=== PATIENT | female | born 1995 ===

== ENCOUNTER 2022-08-05 20:07 | Inpatient (IN) | payer BC, OTHER ==
[~2022-08-05] VITALS: Ht 177.8 cm; Wt 85.9 kg
[2022-08-05] MEDS ORDERED: PRENATAL TABLE1 EAC2 PO (20:45)
[2022-08-05 20:49] LABS: BASOPHILS ABSOLUTE AUTO 0.03 K/mm3 (0.00-0.23); BASOPHILS PERCENT AUTO 0 % (0-2); EOSINOPHILS ABSOLUTE AUTO 0.05 K/mm3 (0.00-0.68); EOSINOPHILS PERCENT AUTO 1 % (0-6); Hematocrit 38.5 % (33.0-51.0); Hemoglobin 13.6 g/dL (11.5-16.0); IMMATURE GRAN ABSOLUTE AUTO 0.05 K/mm3 (0.00-0.10); IMMATURE GRAN PERCENT AUTO 1 % (0-1); LYMPHOCYTES ABSOLUTE AUTO 1.76 K/mm3 (0.84-5.20); LYMPHOCYTES PERCENT AUTO 20 % (21-46); MONOCYTES ABSOLUTE AUTO 0.71 K/mm3 (0.16-1.47); MONOCYTES PERCENT AUTO 8 % (4-13); Mean Corpuscular HGB 31.9 pg (26.0-34.0); Mean Corpuscular HGB Conc 35.3 g/dL (31.5-36.5); Mean Corpuscular Volume 90 fL (80-100); Mean Platelet Volume 10.9 fL (9.1-12.4); NEUTROPHILS ABSOLUTE AUTO 6.32 K/mm3 (1.96-9.15); NEUTROPHILS PERCENT AUTO 71 % (41-73); Platelet Count 230 K/mm3 (150-400); RDW Coefficient Variation 12.6 % (11.7-14.2); RDW Standard Deviation 41.3 fL (35.1-46.3); Red Blood Cell Count 4.27 M/mm3 (3.80-5.20); White Blood Cell Count 8.92 K/mm3 (4.00-11.30)
[2022-08-08 05:49] LABS: BASOPHILS ABSOLUTE AUTO 0.04 K/mm3 (0.00-0.23); BASOPHILS PERCENT AUTO 0 % (0-2); EOSINOPHILS ABSOLUTE AUTO 0.05 K/mm3 (0.00-0.68); EOSINOPHILS PERCENT AUTO 0 % (0-6); Hematocrit 34.8 % (33.0-51.0); IMMATURE GRAN ABSOLUTE AUTO 0.05 K/mm3 (0.00-0.10); IMMATURE GRAN PERCENT AUTO 0 % (0-1); LYMPHOCYTES ABSOLUTE AUTO 1.92 K/mm3 (0.84-5.20); LYMPHOCYTES PERCENT AUTO 15 % (21-46); MONOCYTES ABSOLUTE AUTO 1.09 K/mm3 (0.16-1.47); MONOCYTES PERCENT AUTO 8 % (4-13); Mean Corpuscular HGB 31.7 pg (26.0-34.0); Mean Corpuscular HGB Conc 34.5 g/dL (31.5-36.5); Mean Corpuscular Volume 92 fL (80-100); Mean Platelet Volume 10.8 fL (9.1-12.4); NEUTROPHILS ABSOLUTE AUTO 10.11 K/mm3 (1.96-9.15); NEUTROPHILS PERCENT AUTO 76 % (41-73); Platelet Count 196 K/mm3 (150-400); RDW Standard Deviation 43.4 fL (35.1-46.3); Red Blood Cell Count 3.79 M/mm3 (3.80-5.20); White Blood Cell Count 13.26 K/mm3 (4.00-11.30)
== END 2022-08-08 19:27 | disposition home or self-care (01) | DRG 807 ==
LOC: OBS 20:07 → BC 20:20
PROVIDERS: ADMIT Obstetrics & Gynecology
PROC: 10E0XZZ Delivery of Products of Conception, External Approach (ICD-10-PCS; principal; 2022-08-07)
PROC: 0HQ9XZZ Repair Perineum Skin, External Approach (ICD-10-PCS; 2022-08-07)
PROC: 3E0R3BZ Introduction of Anesthetic Agent into Spinal Canal, Percutaneous Approach (ICD-10-PCS; 2022-08-07)
PROC: 00HU33Z Insertion of Infusion Device into Spinal Canal, Percutaneous Approach (ICD-10-PCS; 2022-08-07)
DX: O48.0 Post-term pregnancy (principal); Z37.0 Single live birth; O77.0 Labor and delivery complicated by meconium in amniotic fluid; O70.0 First degree perineal laceration during delivery; Z3A.41 41 weeks gestation of pregnancy
CPT/HCPCS: 36415; 51702; 85025; 86850; 86900; 86901; A9270; J0290; J1885; J2210; J2590; J7120

== ENCOUNTER 2023-09-24 10:01 | Inpatient (IN) | payer BC, OTHER ==
[~2023-09-24] VITALS: Ht 177.8 cm; Wt 82.7 kg
[2023-09-24] VITALS (38 sets, daily range): BP systolic 89–138; BP diastolic 50–102
[~2023-09-24 10:01] MED LIST: PRENATAL TABLE1 EAC2 PO
[2023-09-24] MEDS ORDERED: Ampicillin Sod 2,000 MG in NS 100 ML IV STA (10:23)
[2023-09-24] MEDS ORDERED: Lidocaine HCl 1% 30 ML SDV XX SCH (10:25)
[2023-09-24] MEDS ORDERED: Castor Oil 59.146 ML BTL TOP SCH (10:25)
[2023-09-24] MEDS ORDERED: Bupivacaine 0.5% HCl 5 MG/ML 30MLVIAL XX SCH (10:25)
[2023-09-24] MEDS ORDERED: ePHEDrine Sulfate 50 MG/ML 1ML Injection XX PRN (10:25)
[2023-09-24] MEDS ORDERED: Lactated Ringer's 1,000 ML IV PRN (10:25)
[2023-09-24] MEDS ORDERED: Misoprostol 200 MCG Tab PR SCH (10:25)
[2023-09-24] MEDS ORDERED: FentaNYL 2mcg/ml-Bup 0.1% Epd 250 ML EPI PRN (10:25)
[2023-09-24] MEDS ORDERED: Bupivacaine HCl 2.5 MG/ML 10ML P/F Injection XX SCH (10:25)
[2023-09-24] MEDS ORDERED: Lactated Ringer's 1,000 ML IV SCH ×3 (10:25→19:25)
[2023-09-24] MEDS ORDERED: Oxytocin 10 Unit / ML Vial IM SCH (10:25)
[2023-09-24] MEDS ORDERED: Methylergonovine Maleate 0.2MG / ML 1ML Amp IM SCH (10:25)
[2023-09-24] MEDS ORDERED: LR Oxytocin 20 Units 1,000 ML IV SCH ×2 (10:25→19:25)
[2023-09-24] MEDS ORDERED: Lactated Ringer's 1,000 ML IV ONE (10:30)
[2023-09-24] MEDS ORDERED: LR Oxytocin 20 Units 1,000 ML IV ONE (10:30)
[2023-09-24 10:43] LABS: BASOPHILS ABSOLUTE AUTO 0.06 K/mm3 (0.00-0.23); BASOPHILS PERCENT AUTO 0 % (0-2); EOSINOPHILS ABSOLUTE AUTO 0.03 K/mm3 (0.00-0.68); EOSINOPHILS PERCENT AUTO 0 % (0-6); Hematocrit 41.2 % (33.0-51.0); Hemoglobin 14.8 g/dL (11.5-16.0); IMMATURE GRAN ABSOLUTE AUTO 0.07 K/mm3 (0.00-0.10); IMMATURE GRAN PERCENT AUTO 0 % (0-1); LYMPHOCYTES ABSOLUTE AUTO 1.34 K/mm3 (0.84-5.20); LYMPHOCYTES PERCENT AUTO 8 % (21-46); MONOCYTES PERCENT AUTO 6 % (4-13); Mean Corpuscular HGB 32.2 pg (26.0-34.0); Mean Corpuscular HGB Conc 35.9 g/dL (31.5-36.5); Mean Corpuscular Volume 90 fL (80-100); Mean Platelet Volume 10.3 fL (9.1-12.4); NEUTROPHILS ABSOLUTE AUTO 13.96 K/mm3 (1.96-9.15); NEUTROPHILS PERCENT AUTO 85 % (41-73); Platelet Count 247 K/mm3 (150-400); RDW Coefficient Variation 12.9 % (11.7-14.2); RDW Standard Deviation 42.5 fL (35.1-46.3); Red Blood Cell Count 4.59 M/mm3 (3.80-5.20); White Blood Cell Count 16.46 K/mm3 (4.00-11.30)
[2023-09-24] MEDS ORDERED: FentaNYL Citrate 50 MCG/ML 2 ML Injection ONE (11:09)
[2023-09-24] MEDS ORDERED: FentaNYL Citrate 50 MCG/ML 2 ML Injection IV PRN (13:35)
[2023-09-24] MEDS ORDERED: Ampicillin Sod 1,000 MG in NS 100 ML IV SCH (14:00)
[2023-09-24] MEDS ORDERED: Benzocaine Topical Anesthetic Spray 60GM TOP PRN (19:20)
[2023-09-24] MEDS ORDERED: Acetaminophen 325 MG TABLET PO PRN (19:20)
[2023-09-24] MEDS ORDERED: Methylergonovine Maleate 0.2MG / ML 1ML Amp IM PRN (19:20)
[2023-09-24] MEDS ORDERED: Ibuprofen 400 MG Tab PO PRN (19:25)
[2023-09-24] MEDS ORDERED: Witch Hazel/Glycerin PADS TOP PRN (19:25)
[2023-09-24] MEDS ORDERED: Misoprostol 200 MCG Tab PR PRN (19:25)
[2023-09-24] MEDS ORDERED: Ketorolac Tromethamine 30mg Vial IV SCH (20:00)
[2023-09-25] VITALS (7 sets, daily range): BP systolic 108–127; BP diastolic 68–77
[2023-09-25] MEDS ORDERED: Ketorolac Tromethamine 30mg Vial IV PRN (02:55)
[2023-09-25 05:39] LABS: BASOPHILS ABSOLUTE AUTO 0.05 K/mm3 (0.00-0.23); BASOPHILS PERCENT AUTO 0 % (0-2); EOSINOPHILS ABSOLUTE AUTO 0.12 K/mm3 (0.00-0.68); EOSINOPHILS PERCENT AUTO 1 % (0-6); Hematocrit 36.9 % (33.0-51.0); IMMATURE GRAN ABSOLUTE AUTO 0.07 K/mm3 (0.00-0.10); IMMATURE GRAN PERCENT AUTO 1 % (0-1); LYMPHOCYTES ABSOLUTE AUTO 1.81 K/mm3 (0.84-5.20); LYMPHOCYTES PERCENT AUTO 14 % (21-46); MONOCYTES ABSOLUTE AUTO 0.95 K/mm3 (0.16-1.47); MONOCYTES PERCENT AUTO 7 % (4-13); Mean Corpuscular HGB 32.2 pg (26.0-34.0); Mean Corpuscular HGB Conc 35.2 g/dL (31.5-36.5); Mean Corpuscular Volume 91 fL (80-100); Mean Platelet Volume 10.3 fL (9.1-12.4); NEUTROPHILS ABSOLUTE AUTO 10.41 K/mm3 (1.96-9.15); NEUTROPHILS PERCENT AUTO 78 % (41-73); Platelet Count 207 K/mm3 (150-400); RDW Standard Deviation 43.2 fL (35.1-46.3); Red Blood Cell Count 4.04 M/mm3 (3.80-5.20); White Blood Cell Count 13.41 K/mm3 (4.00-11.30)
[2023-09-25] MEDS ORDERED: Prenatal Vit/FE Fumarate/FA 1 Tab PO SCH (09:00)
[2023-09-25] MEDS ORDERED: IBUP800 PO (09:12)
[2023-09-25] MEDS ORDERED: Docusil100 MG PO (09:13)
--- NOTE | 2023-09-25 10:30 | NUR ---
Assumed care from Arabella Cardoso RN
--- NOTE | 2023-09-25 15:00 | NUR ---
Pt, who is experienced mother, reviewed printed d/c instructions. Denies any questions.
== END 2023-09-25 22:50 | disposition home or self-care (01) | DRG 806 ==
LOC: OBS 10:01 → BC 10:02 → OBS 10:19 → BC 10:20
PROVIDERS: ADMIT Obstetrics & Gynecology
PROC: 10E0XZZ Delivery of Products of Conception, External Approach (ICD-10-PCS; principal; 2023-09-24)
DX: O48.0 Post-term pregnancy (principal); O47.1 False labor at or after 37 completed weeks of gestation; Z37.0 Single live birth; Z3A.40 40 weeks gestation of pregnancy; Z79.899 Other long term (current) drug therapy; O69.81X0 Labor and delivery complicated by cord around neck, without compression, not applicable or unspecified
CPT/HCPCS: 36415; 51702; 59025; 85025; 86850; 86900; 86901; 99214; A9270; J0290; J1885; J2590; J3010; J7120

== ENCOUNTER → 2024-08-18 | Outpatient (CLI) | payer OTHER ==
[~2024-08-18] MED LIST changes: +Docusil100 MG PO; +IBUP800 PO
== END ==
LOC: LAB SHORT 14:26 → LAB 14:26
DX: N76.0 Acute vaginitis (principal)
CPT/HCPCS: 87086